=== PATIENT | female | born 1990 | race American Indian/Alaskan Native ===

== ENCOUNTER 2018-05-16 00:32 | Emergency (ER) | payer MEDICAID ==
[2018-05-16] MEDS ORDERED: TYLENOL ONE (01:53)
[2018-05-16] MEDS ORDERED: TYLENOL PO ONE (02:07)
[2018-05-16 02:52] VITALS: BP 124/63
== END 2018-05-16 02:56 | disposition left against medical advice (07) ==
LOC: EDSEX → ED 00:32
DX: K13.79 Other lesions of oral mucosa (principal); Z53.21 Procedure and treatment not carried out due to patient leaving prior to being seen by health care provider